=== PATIENT | male | born 1950 | race Two or more races ===

== ENCOUNTER 2018-11-25 10:35 | Inpatient (IN) | payer MEDICARE, OTHER ==
[~2018-11-25] VITALS: Ht 177.8 cm; Wt 81.6 kg
[~2018-11-25 10:35] MED LIST: CARB-93 PO; LOSA50TA39 PO; QUET25TA PO; RASA1TAB PO; SENN-168 PO; TAMS0.4C34 PO
--- NOTE | 2018-11-25 10:56 | NUR ---
BIB FAMILY FOR BRIGHT RED BLOOD IN STOOL SINCE THIS MORNING. TO ER BED 11, HOOKED TO MONITOR, CHANGED TO GOWN, PROVIDED W WARM BLANKET, AWAITING MD FRAUSTO.
[2018-11-25 11:12] LABS: BASOPHILS % (AUTO) 0.6 % (0.0-2.0); EOSINOPHILS % (AUTO) 1.7 % (0.0-6.0); HEMATOCRIT 38 % (39-51); HEMOGLOBIN 12.7 g/dL (13.5-17.5); LYMPHOCYTES # (AUTO) 1.5 /CMM (0.8-4.8); LYMPHOCYTES % (AUTO) 25.5 % (20.0-44.0); MEAN CORPUSCULAR HGB CONC 33 g/dl (31.0-36.0); MEAN CORPUSCULAR VOLUME 97 fL (80-96); MONOCYTES # (AUTO) 0.5 /CMM (0.1-1.30); MONOCYTES % (AUTO) 7.8 % (2.0-12.0); NEUTROPHILS # (AUTO) 3.7 /CMM (1.8-8.9); NEUTROPHILS % (AUTO) 64.4 % (43.0-81.0); PLATELET COUNT (AUTO) 162 /CMM (150-450); RED BLOOD CELL COUNT(AUTO) 3.93 MIL/uL (4.5-6.0); WHITE BLOOD COUNT (AUTO) 5.8 K/uL (4.3-11.0)
[2018-11-25 11:21] LABS: CALCIUM, SERUM 8.7 mg/dL (8.5-10.1); POTASSIUM 4.1 mmol/L (3.5-5.1)
[2018-11-25 11:25] LABS: ALBUMIN 3.5 g/dL (3.4-5.0); BILIRUBIN,DIRECT 0.1 mg/dL (0.0-0.2); BILIRUBIN,TOTAL 0.4 mg/dL (0.2-1.0); TOTAL PROTEIN, SERUM 6.5 g/dL (6.4-8.2)
--- NOTE | 2018-11-25 11:33 | NUR ---
DR ARCHER AT BEDSIDE
[2018-11-25] MEDS ORDERED: RASA1TAB PO (11:48)
[2018-11-25] MEDS ORDERED: FLUD0.1T PO (11:48)
[2018-11-25] MEDS ORDERED: DONE10TA44 PO (11:48)
[2018-11-25] MEDS ORDERED: MULT-661 PO (11:48)
[2018-11-25] MEDS ORDERED: VITAMIN B-1 PO (11:48)
--- NOTE | 2018-11-25 11:58 | NUR ---
CALLED NURSING SUP FOR BED
[2018-11-25] MEDS ORDERED: PANTOPRAZOLE 80 MG in IV NS 0.9% 500 ML IV PRN (12:00)
[2018-11-25] MEDS ORDERED: PANTOPRAZOLE 80 MG in IV NS 0.9% 100 ML IV ONE (12:00)
--- NOTE | 2018-11-25 12:06 | NUR ---
CALLED [facility], PAGED MATTHEW
[2018-11-25] MEDS ORDERED: PANTOPRAZOLE 40 MG VIAL ONE (12:12)
--- NOTE | 2018-11-25 12:54 | NUR ---
REPORT GIVEN TO ED MANN OF TELE UNIT
[2018-11-25] MEDS ORDERED: ONDANSETRON HCL/PF 4 MG/2 ML VIAL IVP PRN (13:00)
[2018-11-25] MEDS ORDERED: MAGNESIUM HYDROXIDE 30 ML UDC PO PRN (13:00)
[2018-11-25] MEDS ORDERED: MAG HYDROX/AL HYDROX/SIMETH 30 ML UDC PO PRN (13:00)
[2018-11-25] MEDS ORDERED: Z GUARD REMEDY 2 OZ OINT TP PRN (13:00)
[2018-11-25] MEDS ORDERED: ACETAMINOPHEN 325 MG TABLET PO PRN (13:00)
[2018-11-25] MEDS ORDERED: [UNRECOGNIZED DRUG - REMARK] (13:03)
[2018-11-25] MEDS ORDERED: LINA290C PO (13:03)
[2018-11-25 13:50] VITALS: BP 135/82
--- NOTE | 2018-11-25 14:00 | NUR ---
RN NOTE SPOKE WITH DR CASTRO REGARDING PROTONIX DRIP - PT DOES NOT NEED IT. D/C ORDER.
--- NOTE | 2018-11-25 14:19 | NUR ---
RN NOTE CALLED PT'S SON DOROTHY AND LEFT VOICEMAIL TO BRING HOME MED AZILECT 1MG TO [facility]. AWAITING RESPONSE.
[2018-11-25] MEDS ORDERED: CARB-93 PO (14:33)
[2018-11-25] MEDS: IV NS 0.9% 1,000 ML IV PRN (15:09)
[2018-11-25 16:00] VITALS: BP_SYST 136; BP_SYST 150; BP_DIAS 77; BP_DIAS 85
[2018-11-25 16:41] LABS: HEMOGLOBIN 12.6 g/dL (13.5-17.5)
[2018-11-25] MEDS ORDERED: CARBIDOPA/LEVODOPA 25/100 MG 1 UDTAB PO SCH (18:00)
[2018-11-25] MEDS: CARBIDOPA LEVODOPA ENTACAPONE PO SCH ×2 (18:46→21:00)
--- NOTE | 2018-11-25 19:25 | NUR ---
FUEL BUYER OPENING NOTES PATIENT IN BED, AWAKE, A/OX2, CONFUSED AND AGITATED AND TRYING TO GET OUT OF BED. REORIENTED PATIENT. PATIENT EMIRATI/NAMIBIAN SPEAKING ONLY. PER AM RN, FAMILY IS COMING TO HELP EXPLAIN AND CALM DOWN PATIENT. ON TELE MONITOR SR WITH HR 60S. PT DENIES ANY SOB OR PAIN AT THE PRESENT MOMENT, RR EVEN AND UNLABORED. IV SITE RIGHT AC 20G, FLUSHING AND PATENT, SITE C/D/I. IV FLUIDS RUNNING ORDERED, NO INFILTRATION NOTED. SAFETY MEASURES IN PLACE; BED IS LOCKED AND IN LOWEST POSITION, SIDE RAILS UP X2, CALL LIGHT WITHIN REACH, BED ALARM ON. WILL CONTINUE TO MONITOR PT CLOSELY.
[2018-11-25 20:00] VITALS: BP 105/49
[2018-11-25] MEDS: SEROQUEL 50 MG PO SCH (21:04)
[2018-11-25] MEDS: TAMSULOSIN 0.4 MG CAP.SR.24H PO SCH (21:04)
[2018-11-25] MEDS: ARICEPT 10 MG PO SCH (21:04)
[2018-11-25] MEDS ORDERED: DONEPEZIL 5 MG TABLET PO SCH (22:00)
[2018-11-25] MEDS ORDERED: QUETIAPINE FUMARATE 25 MG TABLET PO SCH (22:00)
[2018-11-26] VITALS: BP 143/79
[2018-11-26 04:00] VITALS: BP 150/79
[2018-11-26] MEDS: IV NS 0.9% 1,000 ML IV PRN ×2 (04:15→16:50)
[2018-11-26] MEDS: CARBIDOPA LEVODOPA ENTACAPONE PO SCH ×6 (05:42→21:00)
--- NOTE | 2018-11-26 06:53 | NUR ---
OFFSET SECOND PRESS OPERATOR CLOSING NOTES PATIENT IN BED, AWAKE, A/OX2-3, WITH EPISODES OF CONFUSION. SITTER 1:1 FOR PATIENT SAFETY. ON TELE MONITOR SR WITH HR 60S. PT DENIES ANY SOB OR PAIN AT THE MOMENT, RR EVEN AND UNLABORED. IV SITE RIGHT AC 20G, FLUSHING AND PATENT, SITE C/D/I. IV FLUIDS RUNNING ORDERED, NO INFILTRATION NOTED. SAFETY MEASURES IN PLACE; BED IS LOCKED AND IN LOWEST POSITION, SIDE RAILS UP X2, CALL LIGHT WITHIN REACH, BED ALARM ON. WILL CONTINUE TO MONITOR PT CLOSELY. WILL ENDORSE TO AM RN FOR JOON.
--- NOTE | 2018-11-26 07:15 | NUR ---
RN INITIAL NOTE PATIENT IN BED, AWAKE BUT VERY CONFUSED. SPEAKS MAINLY POLISH. ON ROOM AIR, NO COMPLAINS OF ANY PAIN NOR SOB AT THIS TIME. ON TELE MONITOR, SR. AMBULATORY WITH ASSIST. ON CLEAR LIQUID DIET. HAS RIGHT AC #20 WITH NS RUNNING AT 75 ML/HR. PER NOC SHIFT RN, PATIENT WAS SEEN BY DR PACHECO YESTERDAY. SITTER AT BEDSIDE. BED LOCKED AND IN LOWEST POSITION. CALL LIGHT WITHIN REACH, WILL CONT TO MONITOR
[2018-11-26 07:40] LABS: BASOPHILS % (AUTO) 0.6 % (0.0-2.0); EOSINOPHILS % (AUTO) 2.4 % (0.0-6.0); HEMATOCRIT 37 % (39-51); HEMOGLOBIN 12.6 g/dL (13.5-17.5); LYMPHOCYTES # (AUTO) 1.8 /CMM (0.8-4.8); LYMPHOCYTES % (AUTO) 37.5 % (20.0-44.0); MEAN CORPUSCULAR HGB CONC 34 g/dl (31.0-36.0); MEAN CORPUSCULAR VOLUME 94 fL (80-96); MONOCYTES # (AUTO) 0.4 /CMM (0.1-1.30); MONOCYTES % (AUTO) 7.7 % (2.0-12.0); NEUTROPHILS # (AUTO) 2.6 /CMM (1.8-8.9); NEUTROPHILS % (AUTO) 51.8 % (43.0-81.0); PLATELET COUNT (AUTO) 161 /CMM (150-450); WHITE BLOOD COUNT (AUTO) 4.9 K/uL (4.3-11.0)
[2018-11-26] MEDS: PANTOPRAZOLE 40 MG TABLET.DR PO SCH (07:41)
[2018-11-26 07:50] LABS: CALCIUM, SERUM 8.3 mg/dL (8.5-10.1); CREATININE 0.9 mg/dL (0.6-1.3); MAGNESIUM 1.9 mg/dL (1.8-2.4); PHOSPHORUS 3.4 mg/dL (2.5-4.9); POTASSIUM 3.7 mmol/L (3.5-5.1)
[2018-11-26 08:00] VITALS: BP 134/69
[2018-11-26] MEDS: THIAMINE HCL 100 MG TABLET PO SCH (08:23)
[2018-11-26] MEDS: MULTIVITAMINS,THERAGRAN 1 UDTAB TABLET PO SCH (08:23)
[2018-11-26] MEDS: FLUDROCORTISONE 0.1 MG TABLET PO SCH (08:23)
[2018-11-26] MEDS ORDERED: AZILECT 1 MG PO SCH (09:00)
[2018-11-26] MEDS ORDERED: PANTOPRAZOLE 40 MG VIAL IV SCH (09:00)
[2018-11-26] MEDS: AZILECT 1MG TABLET PO SCH (10:43)
[2018-11-26 12:00] VITALS: BP 125/75
[2018-11-26] MEDS: QUETIAPINE FUMARATE 25 MG TABLET PO SCH (15:36)
[2018-11-26 16:00] VITALS: BP 142/82
[2018-11-26 17:50] LABS: IRON, SERUM 70 ug/dl (50-175); TOTAL IRON BINDING CAPACITY 239 ug/dl (250-450)
[2018-11-26 18:03] LABS: FERRITIN 97 ng/mL (8-388)
--- NOTE | 2018-11-26 18:48 | NUR ---
RN CLOSING NOTE PATIENT IN BED, AWAKE. A&Ox2. TURKMEN SPEAKING, FAMILY AT BEDSIDE. ON TELE MONITOR, SR. AMBULATORY WITH ASSIST, PT EVAL ORDERED. PT UNSTEADY BECAUSE OF PARKINSON'S. ON CLEAR LIQUID DIET. HAS RIGHT AC #20 WITH NS AT 75 ML/HR. EGD/COLONOSCOPY ON WEDNESDAY. BOWEL PREP TOMORROW. HAS SMALL AMOUNT OF RED BLOOD STREAK IN DIAPER THIS MORNING. SITTER AT BEDSIDE. BED IN LOWEST POSITION. CALL LIGHT WITHIN REACH. WILL ENDORSE TO NOC SHIFT FOR JOON
--- NOTE | 2018-11-26 19:30 | NUR ---
BATCH ROLLER OPERATOR OPENING NOTE, PATIENT IN BED, AWAKE BUT VERY CONFUSED. SPEAKS [place]ONT[place]GR[place]. ON ROOM AIR, NO COMPLAINS OF ANY PAIN NOR SOB AT THIS TIME. ON TELE MONITOR, SR. AMBULATORY WITH ASSIST. ON CLEAR LIQUID DIET. HAS RIGHT AC #20 WITH NS RUNNING AT 75 ML/HR. AND SON AT BEDSIDE. SITTER AT BEDSIDE. BED LOCKED AND IN LOWEST POSITION. CALL LIGHT WITHIN REACH, WILL CONT TO MONITOR
[2018-11-26 20:00] VITALS: BP 117/75
--- NOTE | 2018-11-26 20:06 | NUR ---
BILINGUAL TEACHER NOTES PATIENT IS CONFUSED AND HE PULLED OUT HIS IV, WARPED WITH NILSON.
[2018-11-26] MEDS: ARICEPT 10 MG PO SCH (21:00)
[2018-11-26] MEDS: TAMSULOSIN 0.4 MG CAP.SR.24H PO SCH (21:02)
[2018-11-26] MEDS: SEROQUEL 50 MG PO SCH (21:03)
[2018-11-27] VITALS: BP 159/77
[2018-11-27 04:00] VITALS: BP 147/76
[2018-11-27] MEDS: AZILECT 1MG TABLET PO SCH (06:19)
[2018-11-27] MEDS: CARBIDOPA LEVODOPA ENTACAPONE PO SCH ×11 (06:23→21:04)
[2018-11-27] MEDS: IV NS 0.9% 1,000 ML IV PRN ×2 (06:26→13:23)
--- NOTE | 2018-11-27 07:02 | NUR ---
KNIFE CUTTER CLOSING NOTE, PATIENT IN BED, SEEPING. SPEAKS IRISH. ON ROOM AIR, NO COMPLAINS OF ANY PAIN NOR SOB AT THIS TIME. ON TELE MONITOR, SR. AMBULATORY WITH ASSIST. ON CLEAR LIQUID DIET. HAS RIGHT HAND #20 WITH NS RUNNING AT 75 ML/HR. PATIENT HAS SITTER AT BED SIDE. BED LOCKED AND IN LOWEST POSITION. CALL LIGHT WITHIN REACH, WILL CONT TO MONITOR
--- NOTE | 2018-11-27 07:20 | NUR ---
DEICER ELEMENT WINDER MACHINE OPENING NOTE PATIENT IN BED, A/OX1. SPEAKS CYPRIOT. ON ROOM AIR, NO SIGN OF ACUTE RESPIRATORY DISTRESS OR SOB NOTED AT THIS TIME. ON TELE MONITOR, SR. ON CLEAR LIQUID DIET. RIGHT HAND #20 WITH NS RUNNING AT 75 ML/HR. SITTER AT BEDSIDE. BED LOCKED AND IN LOWEST POSITION. CALL LIGHT WITHIN REACH, SIDE RAILS UPX2, HOB ELEVATED. WILL CONT TO MONITOR
[2018-11-27 08:00] VITALS: BP 148/75
[2018-11-27] MEDS ORDERED: PEG 3350/NA SULF,BICARB,CL/KCL 4,000 ML BOTTLE PO ONE (08:00)
[2018-11-27] MEDS ORDERED: MAGNESIUM CITRATE 296 ML BOTTLE PO ONE (08:00)
[2018-11-27] MEDS ORDERED: NA PHOS,M-B/NA PHOS,DI-BA 1 EA ENEMA RC PRN (08:00)
[2018-11-27] MEDS: THIAMINE HCL 100 MG TABLET PO SCH (08:59)
[2018-11-27] MEDS: MULTIVITAMINS,THERAGRAN 1 UDTAB TABLET PO SCH (09:00)
[2018-11-27] MEDS: FLUDROCORTISONE 0.1 MG TABLET PO SCH (09:00)
[2018-11-27] MEDS: PANTOPRAZOLE 40 MG TABLET.DR PO SCH (09:01)
--- NOTE | 2018-11-27 09:14 | NUR ---
GREASER AND OILER NOTE HOME MED PARKINSON SHOWN TWICE IN eMAR. CALLED PHARMACY AND UNDO ONE OF THE SCANNED MED. JUST ONE TABLET GIVEN TO THE PT.
[2018-11-27 12:00] VITALS: BP 133/78
[2018-11-27 12:39] LABS: BASOPHILS % (AUTO) 0.6 % (0.0-2.0); EOSINOPHILS % (AUTO) 0.6 % (0.0-6.0); HEMATOCRIT 40 % (39-51); HEMOGLOBIN 13.5 g/dL (13.5-17.5); LYMPHOCYTES # (AUTO) 1.5 /CMM (0.8-4.8); LYMPHOCYTES % (AUTO) 24.4 % (20.0-44.0); MEAN CORPUSCULAR HGB CONC 34 g/dl (31.0-36.0); MEAN CORPUSCULAR VOLUME 95 fL (80-96); MONOCYTES # (AUTO) 0.4 /CMM (0.1-1.30); NEUTROPHILS # (AUTO) 4.2 /CMM (1.8-8.9); NEUTROPHILS % (AUTO) 67.4 % (43.0-81.0); PLATELET COUNT (AUTO) 199 /CMM (150-450); RED BLOOD CELL COUNT(AUTO) 4.21 MIL/uL (4.5-6.0); WHITE BLOOD COUNT (AUTO) 6.2 K/uL (4.3-11.0)
[2018-11-27 12:40] LABS: CALCIUM, SERUM 8.6 mg/dL (8.5-10.1); CREATININE 1.1 mg/dL (0.6-1.3); MAGNESIUM 1.9 mg/dL (1.8-2.4); POTASSIUM 3.9 mmol/L (3.5-5.1)
--- NOTE | 2018-11-27 15:00 | NUR ---
MS RN NOTE PT AT BESIDE AND EVALUATED PT. PER PT, PATIENT CAN WALK SHORT DISTANCES WITH 1 ASSISTANCE.
[2018-11-27] MEDS: QUETIAPINE FUMARATE 25 MG TABLET PO SCH (15:42)
[2018-11-27 16:00] VITALS: BP 110/68
--- NOTE | 2018-11-27 19:00 | NUR ---
MS RN NOTE FAMILY MEMBER AT BEDSIDE. PATIENT A/OX1-2. FAMILY MEMBER (SON) REFUSED TO GIVE CARBODOPA TO PT AND ASKED TO GIVE THE NEXT DOSE AT 2100.
--- NOTE | 2018-11-27 19:57 | NUR ---
MS RN NOTE PT A/OX2. AWAKE , SITTER AND FAMILY MEMBER AT BESIDE. ON ROOM AIR SATURATING WELL. NO SIGN OF ACUTE RESPIRATORY DISTRESS OR SOB NOTED AT THIS TIME. PATIENT DENIED PAIN. SAFETY PRECAUTION IN PLACE. BED LOCKED, LOW POSITION, SIDE RAILS UPX2. CALL LIGHT WITHIN REACH. ENDORSED TO THE HOMICIDE SQUAD SERGEANT NURSE FOR JOON.
[2018-11-27 20:00] VITALS: BP 125/80
[2018-11-27] MEDS ORDERED: CARBIDOPA LEVODOPA ENTACAPONE PO SCH (21:00)
[2018-11-27] MEDS: TAMSULOSIN 0.4 MG CAP.SR.24H PO SCH (21:04)
[2018-11-27] MEDS: ARICEPT 10 MG PO SCH (21:04)
--- NOTE | 2018-11-27 22:47 | NUR ---
MS RN NOTE KUB RESULT GIVEN TO GABRIEL AUGUSTINE ELECTRIC METER READER. GABRIEL GAVE NEW ODER TO KEEP PT NPO, NO MORE GOLYTELY. ALSO START ERYTHROMYCIN 250 MG IV Q8H. ORDERS NOTED AND CARRIED OUT. INFORMED NURSE JULIANE
--- NOTE | 2018-11-27 23:00 | NUR ---
DR BOUDREAUX INFORMED OF PHARMACIST CONCERNS ABOUT INTERACTION IF ERYTHROMYCIN IS TAKEN WITH PT MEDS ARICEPT AND SEROQUEL, IT MAY CAUSE LONG QT., LEFT MESSAGE ON HER PHONE BUT NO CALL BACK YET.
[2018-11-27] MEDS: SEROQUEL 50 MG PO SCH (23:16)
--- NOTE | 2018-11-28 00:30 | NUR ---
INFORMED OF MED INTERACTON ORDERS OBTAINED
[2018-11-28] MEDS ORDERED: ERYTHROMYCIN 500 MG IV ONE (01:46)
[2018-11-28] MEDS ORDERED: WATER FOR INJECTION,STERILE 10 ML ONE (01:47)
[2018-11-28] MEDS: ERYTHROMYCIN 250 MG in IV NS 0.9% 100 ML IV SCH ×3 (01:51→17:56)
[2018-11-28 04:00] VITALS: BP 134/70
[2018-11-28] MEDS: IV NS 0.9% 1,000 ML IV PRN (05:01)
[2018-11-28] MEDS: CARBIDOPA LEVODOPA ENTACAPONE PO SCH ×6 (06:00→21:11)
[2018-11-28] MEDS: AZILECT 1MG TABLET PO SCH (06:00)
[2018-11-28 06:49] LABS: BASOPHILS % (AUTO) 0.3 % (0.0-2.0); EOSINOPHILS % (AUTO) 0.5 % (0.0-6.0); HEMATOCRIT 35 % (39-51); HEMOGLOBIN 12.1 g/dL (13.5-17.5); LYMPHOCYTES # (AUTO) 1.9 /CMM (0.8-4.8); LYMPHOCYTES % (AUTO) 19.4 % (20.0-44.0); MEAN CORPUSCULAR HGB CONC 35 g/dl (31.0-36.0); MEAN CORPUSCULAR VOLUME 94 fL (80-96); MONOCYTES # (AUTO) 0.7 /CMM (0.1-1.30); MONOCYTES % (AUTO) 6.7 % (2.0-12.0); NEUTROPHILS # (AUTO) 7.2 /CMM (1.8-8.9); NEUTROPHILS % (AUTO) 73.1 % (43.0-81.0); PLATELET COUNT (AUTO) 156 /CMM (150-450); RED BLOOD CELL COUNT(AUTO) 3.71 MIL/uL (4.5-6.0); WHITE BLOOD COUNT (AUTO) 9.8 K/uL (4.3-11.0)
[2018-11-28 07:16] LABS: CALCIUM, SERUM 8.2 mg/dL (8.5-10.1); MAGNESIUM 2.2 mg/dL (1.8-2.4); PHOSPHORUS 3.5 mg/dL (2.5-4.9); POTASSIUM 3.7 mmol/L (3.5-5.1)
[2018-11-28] MEDS: PANTOPRAZOLE 40 MG TABLET.DR PO SCH (07:30)
[2018-11-28 08:00] VITALS: BP 148/75
--- NOTE | 2018-11-28 12:14 | NUR ---
Per son , Daryl, would like to talk to MD as procedure will not be today for EGD and colonoscopy. Will follow up with Provider. Arie Bazan RN
[2018-11-28] MEDS ORDERED: PEG 3350/NA SULF,BICARB,CL/KCL 4,000 ML BOTTLE PO ONE (13:00)
[2018-11-28] MEDS ORDERED: MAGNESIUM CITRATE 296 ML BOTTLE PO ONE (13:00)
[2018-11-28] MEDS: THIAMINE HCL 100 MG TABLET PO SCH (13:39)
[2018-11-28] MEDS: MULTIVITAMINS,THERAGRAN 1 UDTAB TABLET PO SCH (13:39)
[2018-11-28] MEDS: FLUDROCORTISONE 0.1 MG TABLET PO SCH (13:48)
[2018-11-28 16:00] VITALS: BP 124/78
--- NOTE | 2018-11-28 19:25 | NUR ---
MS RN OPENING NOTES PATIENT AWAKE, A/OX2, CONFUSED. FAMILY AT BESIDE. ON ROOM AIR, NO SOB OR RESPIRATORY OR CARDIAC DISTRESS NOTED. DENIES ANY PAIN AT THE MOMENT. IV SITE RIGHT HAND 20G, IV FLUIDS RUNNING ORDERED. SAFETY PRECAUTION IN PLACE; BED LOCKED, LOW POSITION, SIDE RAILS UPX2, BED ALARM ON, CALL LIGHT WITHIN REACH. WILL CONT TO MONITOR PT CLOSELY.
--- NOTE | 2018-11-28 19:57 | NUR ---
MS RN NOTES GABRIEL AUGUSTINE NP AT BEDSIDE AND SPEAKING WITH FAMILY.
[2018-11-28 20:00] VITALS: BP 126/75
--- NOTE | 2018-11-28 20:11 | NUR ---
Spouse at bedside understands goal of colonoscopy preperation at this time. Explanation by provider about the color of bowel movement to be clear and orders for procedure to be nothing by mouth after midnight. Arie Davis RN
[2018-11-28] MEDS: TAMSULOSIN 0.4 MG CAP.SR.24H PO SCH (21:18)
--- NOTE | 2018-11-28 21:48 | NUR ---
MS RN NOTES GABRIEL AUGUSTINE NP ORDERED TO STOP ERYTHROMYCIN AND RESTART PATIENT HOME MEDICATIONS SEROQUEL 50MG PO HS AND ARICEPT 10MG PO HS. WILL ATTEND TO ORDERS.
--- NOTE | 2018-11-28 21:55 | NUR ---
MS RN NOTES GABRIEL AUGUSTINE, LINE SUPERVISOR STATED "I SPOKE TO DR. PACHECO AND SAID HE WOULD DO COLONOSCOPY TOMORROW." ORDERED TO SPEAK WITH FAMILY AND STAT GOLYTELY AND KEEP PATIENT NPO AFTER MIDNIGHT. WILL ATTEND TO ORDERS.
[2018-11-28] MEDS ORDERED: PEG 3350/NA SULF,BICARB,CL/KCL 4,000 ML BOTTLE PO STA (22:17)
[2018-11-28] MEDS ORDERED: HOME MED MISCELLANEOUS PO SCH ×2 (22:30)
--- NOTE | 2018-11-28 23:30 | NUR ---
MS RN NOTES PATIENT HOME MEDICATIONS ARICEPT 10MG AND SEROQUEL 50MG UNABLE TO ADMINISTER D/T MEDICATIONS NOT AVAILABLE; HOSPITAL PHARMACY IN AM HAS THE MEDICATIONS. FAMILY MADE AWARE.
[2018-11-29 04:00] VITALS: BP 133/75
[2018-11-29] MEDS: AZILECT 1MG TABLET PO SCH (05:37)
[2018-11-29] MEDS: CARBIDOPA LEVODOPA ENTACAPONE PO SCH ×6 (05:37→21:00)
[2018-11-29] MEDS: IV NS 0.9% 1,000 ML IV PRN (05:47)
--- NOTE | 2018-11-29 07:20 | NUR ---
MS RN CLOSING NOTES PATIENT AWAKE, A/OX2, CONFUSED. PATIENT UNABLE TO FINISH HALF GALLON OF GOLYTELY D/T PATIENT REFUSING AND UNABLE TO UNDERSTAND CONCEPTS, ENDORSED TO AM RN. PATIENT HAD BOWEL MOVEMENT X4, LIGHT BROWN LIQUID STOOL NOTED. ALL MD ORDERS ATTENDED, ALL NEEDS ANTICIPATED AND MET. IV SITE RIGHT HAND 20G, IV FLUIDS RUNNING ORDERED. SAFETY PRECAUTION MAINTAINED; BED LOCKED, LOW POSITION, SIDE RAILS UPX2, BED ALARM ON, CALL LIGHT WITHIN REACH. ENDORSED TO AM RN FOR JOON.
[2018-11-29] MEDS: PANTOPRAZOLE 40 MG TABLET.DR PO SCH (07:30)
--- NOTE | 2018-11-29 07:50 | NUR ---
RN OPENING NOTES RECEIVED PATIENT SLEEPING IN BED, EASILY AROUSED. HE IS AOX1, CONFUSED, VERBAL (TAJIK SPEAKING), AND AMBULATORY WITH WALKER. HE IS ON RA, TOLERATING WELL, SHOWS NO S/SX OF RESP DISTRESS OR SOB. HE DENIES ANY PAIN OR DISCOMFORT AT THIS TIME. HE IS CURRENTLY NPO FOR SCHEDULED EGD TODAY ON 11/29/18. SKIN IS INTACT. HE HAS A R HAND 20 G, INTACT, PATENT. PATIENT UNABLE TO FINISH HALF GALLON BOTTLE OF GOLYETY BY 6AM. SAFETY MEASURES HAVE BEEN IMPLEMENTED, CALL LIGHT WITHIN REACH, BED IN LOWEST AND LOCKED POSITION, SIDE RAILS UP X2, BED ALARM ON. WILL CONTINUE TO MONITOR FOR ANY CHANGES.
[2018-11-29 08:00] VITALS: BP 157/77
--- NOTE | 2018-11-29 09:07 | NUR ---
PATIENT FAMILY IS REQUESTING PATIENT CONTINUE TO TAKING HOME PARKINSON'S MEDICATION. SPOKE WITH DR. PACHECO, HE SAID IT IS OK TO GIVE. WILL CONTINUE TO MONITOR
[2018-11-29] MEDS: THIAMINE HCL 100 MG TABLET PO SCH (09:15)
[2018-11-29] MEDS: MULTIVITAMINS,THERAGRAN 1 UDTAB TABLET PO SCH (09:17)
[2018-11-29] MEDS: FLUDROCORTISONE 0.1 MG TABLET PO SCH (09:17)
--- NOTE | 2018-11-29 10:30 | NUR ---
EGD AND COLONOSCOPY POSTPONED TO 11/30/18, FAMILY IS AWARE OF NEW TREATMENT PLAN. RECEIVED NEW ORDERS FROM DR. PACHECO, WILL ENFORCE. WILL CONTINUE TO MONITOR FOR ANY CHANGES
[2018-11-29] MEDS: SORBITOL SOLUTION 30 ML PO SCH ×2 (13:09→18:03)
--- NOTE | 2018-11-29 14:58 | NUR ---
PATIENT HAS UNSTEADY GAIT AND IS AT RISK FOR FALLS. HE NEEDS TO USED THE BATHROOM FREQUENTLY BECAUSE OF BOWEL CLEANING MEDICATIONS. RECEIVED ORDER FROM DR. BAKER FOR 1-1 PATIENT SITTER. WILL CONTINUE TO MONITOR FOR ANY CHANGES
[2018-11-29 16:00] VITALS: BP 142/84
--- NOTE | 2018-11-29 19:18 | NUR ---
RN CLOSING NOTES PATIENT IS RESTING IN BED COMFORTABLY, FAMILY AT BEDSIDE. DENIES ANY PAIN OR DISCOMFORT AT THIS TIME. CONSENT FORM HAS BEEN SIGNED AND IS IN THE PATIENTS CHART. PATIENTS NEEDS HAVE BEEN MET. SAFETY MEASURES HAVE BEEN IMPLEMENTED, CALL LIGHT IS WITHIN REACH, BED IS IN LOWEST AND LOCKED POSITION, SIDE RAILS UP X2. WILL ENDORSE TO NIGHTSHIFT RN FOR CONTINUAL CARE.
--- NOTE | 2018-11-29 20:00 | NUR ---
MS RN NOTES RECEIVED PATIENT AWAKE IN BED WITH NO DISTRESS NOTED. CALL LIGHT WITHIN REACH. SITTER AND FAMILY AT BEDSIDE. PERIPHERAL LINE INTACT AND PATENT. BED IN LOW LOCK SETTING. ALL BELONGINGS KEPT NEAR BEDSIDE. WILL CONTINUE TO MONITOR
[2018-11-29] MEDS ORDERED: ARICEPT 10 MG PO SCH (21:00)
[2018-11-29] MEDS: TAMSULOSIN 0.4 MG CAP.SR.24H PO SCH (21:02)
[2018-11-29] MEDS ORDERED: SEROQUEL 50 MG PO SCH (22:00)
[2018-11-30] VITALS: BP 138/73
[2018-11-30] MEDS: SORBITOL SOLUTION 30 ML PO SCH ×2 (00:58→05:18)
[2018-11-30] MEDS: CARBIDOPA LEVODOPA ENTACAPONE PO SCH ×4 (05:18→15:16)
[2018-11-30] MEDS: AZILECT 1MG TABLET PO SCH (05:18)
--- NOTE | 2018-11-30 06:47 | NUR ---
MS RN NOTES PATIENT ASLEEP IN BED WITH NO DISTRESS NOTED. CALL LIGHT WITHIN REACH. SITTER AT BEDSIDE. ALL DUE MEDS GIVEN ORDERED WITH NO ASE NOTED. NO C/O PAIN OR DISCOMFORT. PERIPHERAL LINE REMAINS INTACT AND PATENT. NPO STATUS EXCEPT FOR MEDS INITIATED AT MIDNIGHT ORDERED. ALL CONSENTS FOR EGD WITH COLONOSCOPY OBTAINED. BED IN LOW LOCK SETTING. ROOM FREE OF CLUTTER AND BELONGINGS KEPT NEAR BEDSIDE. WILL ENDORSE TO ONCOMING SHIFT.
[2018-11-30 07:25] LABS: BASOPHILS % (AUTO) 0.6 % (0.0-2.0); EOSINOPHILS % (AUTO) 2.3 % (0.0-6.0); HEMATOCRIT 36 % (39-51); HEMOGLOBIN 12.3 g/dL (13.5-17.5); LYMPHOCYTES % (AUTO) 35.1 % (20.0-44.0); MEAN CORPUSCULAR HGB CONC 34 g/dl (31.0-36.0); MEAN CORPUSCULAR VOLUME 95 fL (80-96); MONOCYTES # (AUTO) 0.5 /CMM (0.1-1.30); MONOCYTES % (AUTO) 8.5 % (2.0-12.0); NEUTROPHILS % (AUTO) 53.5 % (43.0-81.0); PLATELET COUNT (AUTO) 168 /CMM (150-450); RED BLOOD CELL COUNT(AUTO) 3.79 MIL/uL (4.5-6.0); WHITE BLOOD COUNT (AUTO) 5.6 K/uL (4.3-11.0)
--- NOTE | 2018-11-30 07:28 | NUR ---
RN OPENING NOTES RECEIVED PATIENT AWAKE IN HIS BED, DENIES ANY PAIN OR DISCOMFORT AT THIS TIME. PATIENT IS AOX2, EPISODES OF CONFUSION, VERBAL, AND AMBULATORY WITH ASSIST. HE IS ON RA AND IS TOLERATING WELL, SHOWS NO S/SX OF RESP DISTRESS OR SOB. PT IS SCHEDULED FOR AN EGD AND COLONOSCOPY TODAY, CONSENT FORMS HAVE BEEN SIGNED AND ARE IN THE CHART. HE IS NPO EXCEPT MEDS SINCE MIDNIGHT. PATIENT WAS ABLE TO FINISH THE GOLYTLEY PRIOR TO PROCEDURE. GE HAS A R HAND 20 G. SAFETY MEASURES HAVE BEEN IMPLEMENTED, CALL LIGHT IS WITHIN REACH, BED IS IN LOWEST AND LOCKED POSITION, SIDE RAILS UP X2, WILL CONTINUE TO MONITOR FOR ANY CHANGES.
[2018-11-30 08:00] VITALS: BP 136/73
[2018-11-30] MEDS: PANTOPRAZOLE 40 MG TABLET.DR PO SCH (08:00)
[2018-11-30 08:40] LABS: CALCIUM, SERUM 8.4 mg/dL (8.5-10.1); POTASSIUM 3.1 mmol/L (3.5-5.1)
[2018-11-30] MEDS: MULTIVITAMINS,THERAGRAN 1 UDTAB TABLET PO SCH (08:53)
[2018-11-30] MEDS: THIAMINE HCL 100 MG TABLET PO SCH (08:53)
[2018-11-30] MEDS: FLUDROCORTISONE 0.1 MG TABLET PO SCH (08:53)
--- NOTE | 2018-11-30 09:00 | NUR ---
PATIENT LEFT FOR EGD AND COLONOSCOPY VIA GURNEY, AWAITING ARRIVAL
--- NOTE | 2018-11-30 10:51 | NUR ---
PATIENT RETURNED FROM EGD AND COLONOSCOPY, STABLE CONDITION. VITAL: BP:139/74 HR: 61 T: 97 F. 400 ML OF NS GIVEN DURING RECOVERY, WILL CONTINUE TO MONITOR FOR ANY CHANGES.
[2018-11-30] MEDS: POTASSIUM CHLORIDE 20 MEQ POWDER PACKET PO SCH ×2 (11:08→12:21)
--- NOTE | 2018-11-30 18:15 | NUR ---
PATIENT HAS BEEN DISCHARGED FROM THE UNIT, LEFT WITH WALKING. IV SITE REMOVED, BELONGINGS LIST CHECKED OFF, HOME MEDS RETURNED, EXIT CARE PROVIDED, PATIENT LEFT IN STABLE CONDITION, BUT STILL CONFUSED. PATIENT NEEDS HAVE BEEN MET
== END 2018-11-30 18:20 | disposition home or self-care (01) | DRG 393 ==
LOC: ER 10:36 → TELE1 12:22 → MEDSG1 11-27 14:09
PROVIDERS: ADMIT Internal Medicine; ATTEND Internal Medicine
PROC: 0DB68ZX Excision of Stomach, Via Natural or Artificial Opening Endoscopic, Diagnostic (ICD-10-PCS; principal; 2018-11-30)
PROC: 0DJD8ZZ Inspection of Lower Intestinal Tract, Via Natural or Artificial Opening Endoscopic (ICD-10-PCS; 2018-11-30)
DX: K63.89 Other specified diseases of intestine (principal); G93.41 Metabolic encephalopathy; K56.7 Ileus, unspecified; F02.80 Dementia in other diseases classified elsewhere, unspecified severity, without behavioral disturbance, psychotic disturbance, mood disturbance, and anxiety; G20 Parkinson's disease; F41.9 Anxiety disorder, unspecified; E86.0 Dehydration; N40.0 Benign prostatic hyperplasia without lower urinary tract symptoms; F32.9 Major depressive disorder, single episode, unspecified; K64.8 Other hemorrhoids; Z86.010 Personal history of colon polyps; Z74.01 Bed confinement status; Z80.0 Family history of malignant neoplasm of digestive organs; I10 Essential (primary) hypertension; D64.9 Anemia, unspecified; K29.70 Gastritis, unspecified, without bleeding
CPT/HCPCS: 36415; 71045-TC; 74018; 80048-TC; 80076-TC; 82728-TC; 83540-TC; 83690-TC; 83735-TC; 84100-TC; 85025-TC; 85027-TC; 85610-TC; 85730-TC; 86850-TC; 87081-TC; 88305-TC; 88313-TC; 88342; 97116-TC; 97530-TC; C9113; G0378; J0280; J1364; J2704; J7030